=== PATIENT | male | born 1995 | race Caucasian/White ===

== ENCOUNTER 2020-09-16 13:21 | Emergency (ER) | payer OTHER ==
[~2020-09-16 13:21] MED LIST: AUGMENTIN 875-1 EACH PO
[2020-09-16 15:25] LABS: AMPHETAMINES NEGATIVE (NEGATIVE); BARBITURATES NEGATIVE (NEGATIVE); ECSTASY (MDMA) NEGATIVE (NEGATIVE); MARIJUANA (THC) NEGATIVE (NEGATIVE); METHADONE NEGATIVE (NEGATIVE); OPIATES NEGATIVE (NEGATIVE); OXYCODONE NEGATIVE (NEGATIVE)
== END 2020-09-16 15:43 | disposition left against medical advice (07) ==
LOC: FER 13:21
PROVIDERS: Emergency Medicine
DX: R53.1 Weakness (principal); M54.9 Dorsalgia, unspecified; Z53.8 Procedure and treatment not carried out for other reasons
CPT/HCPCS: 80305